=== PATIENT | female | born 1945 | race African-American/Black ===

== ENCOUNTER 2018-07-11 10:18 | Emergency (ER) | payer OTHER ==
[~2018-07-11] VITALS: Ht 165.1 cm; Wt 95.0 kg
[2018-07-11] MEDS ORDERED: KETOROLAC 30MG/ML VIAL IV STA (10:59)
[2018-07-11] MEDS ORDERED: SODIUM CHLORIDE 0.9% 1,000 ML IV ONE (10:59)
[2018-07-11] MEDS ORDERED: CLINDAMYCIN 600 MG in DEXTROSE 5% WATER 50 ML IV ONE (11:00)
[2018-07-11 12:03] LABS: BASOPHILS % 0.7 % (0.0-2.0); CHLORIDE 96 mEq/L (98-107); HEMATOCRIT. 33.4 % (36.0-48.0); HEMOGLOBIN. 10.5 g/dL (12.0-16.0); LYMPHOCYTES % 11.2 % (20.0-50.0); MEAN CORPUSCULAR HEMOGLOBIN 23.5 pg (28.0-32.0); MEAN CORPUSCULAR VOLUME 74.7 fL (81.0-99.0); MONOCYTES % 6.8 % (2.0-8.0); NEUTROPHILS % 80.3 % (40.0-76.0); PLATELET 323 x1000/uL (130-400); RED BLOOD CELL COUNT 4.47 mill/uL (4.2-5.4); RED CELL DISTRIBUTION WIDTH 15.8 % (11.6-14.6)
[2018-07-11 12:06] LABS: PROTHROMBIN TIME 10.4 sec (9.1-11.1)
[2018-07-11 12:23] LABS: BETA HYDROXYBUTYRATE 1.1 mMol/L (0.0-0.3)
[2018-07-11] MEDS ORDERED: CLINDAMYCIN 600MG PREMIX 50 ML IV ONE (12:30)
[2018-07-11 16:27] VITALS: BP 180/105
== END 2018-07-11 16:40 | disposition short-term general hospital (02) ==
LOC: ER 10:25 → CANBEDREQ 18:03
DX: J36 Peritonsillar abscess (principal); N17.9 Acute kidney failure, unspecified; E86.0 Dehydration; E11.9 Type 2 diabetes mellitus without complications; D50.9 Iron deficiency anemia, unspecified; I10 Essential (primary) hypertension; Z87.891 Personal history of nicotine dependence; Z88.8 Allergy status to other drugs, medicaments and biological substances; Z88.2 Allergy status to sulfonamides
CPT/HCPCS: 36415; 70490; 71045; 80053; 82010; 83605; 85025; 85610; 87040; 87070; 87430; 93005; 96361; 96365; 96375; 99291; J1885; J3490; J7030; J7060

== ENCOUNTER 2019-03-19 19:04 | Emergency (ER) | payer OTHER, MEDICAID ==
[~2019-03-19] VITALS: Ht 167.6 cm; Wt 91.0 kg
[2019-03-19] MEDS ORDERED: DEXTROSE 50% WATER 50ML SYRINGE IV ONE ×2 (20:15→23:00)
[2019-03-19] MEDS ORDERED: SODIUM CHLORIDE 0.9% 500 ML IV ONE (20:15)
[2019-03-19 20:35] LABS: CHLORIDE 107 mEq/L (98-107)
[2019-03-19 20:38] LABS: BASOPHILS % 0.3 % (0.0-2.0); EOSINOPHILS % 0.9 % (0.0-5.0); HEMATOCRIT. 35.3 % (36.0-48.0); HEMOGLOBIN. 10.8 g/dL (12.0-16.0); LYMPHOCYTES % 14.7 % (20.0-50.0); MEAN CORPUSCULAR VOLUME 74.9 fL (81.0-99.0); MEAN PLATELET VOLUME 9.6 fl (7.4-10.4); NEUTROPHILS % 78.1 % (40.0-76.0); PLATELET 331 x1000/uL (130-400); RED BLOOD CELL COUNT 4.72 mill/uL (4.2-5.4); RED CELL DISTRIBUTION WIDTH 15.8 % (11.6-14.6)
[2019-03-19 21:16] LABS: CLARITY URINE CLEAR (CLEAR); COLOR URINE YELLOW (YELLOW); KETONES URINE NEGATIVE (NEGATIVE); LEUKOCYTE ESTERASE URINE NEGATIVE (NEGATIVE); NITRITE URINE NEGATIVE (NEGATIVE); OCCULT BLOOD URINE TRACE (NEGATIVE); PH URINE 6.5 (4.5-8.0); PROTEIN URINE 3+ (NEGATIVE); SPECIFIC GRAVITY URINE 1.008 (1.005-1.030); UROBILINOGEN URINE 0.2 E.U./dL (0.2-1.0)
[2019-03-19] MEDS ORDERED: CEFTRIAXONE 1 G PREMIX 50 ML IV ONE (21:45)
[2019-03-19] MEDS ORDERED: DEXT 5%/0.9% NACL 1,000 ML IV ONE (23:00)
[2019-03-20 01:04] VITALS: BP 180/86
== END 2019-03-20 01:22 | disposition short-term general hospital (02) ==
LOC: ER 19:12 → CANBEDREQ 03-20 02:05
DX: E11.649 Type 2 diabetes mellitus with hypoglycemia without coma (principal); N39.0 Urinary tract infection, site not specified; I10 Essential (primary) hypertension; Z90.710 Acquired absence of both cervix and uterus; Z88.2 Allergy status to sulfonamides; Z88.6 Allergy status to analgesic agent; Z88.8 Allergy status to other drugs, medicaments and biological substances
CPT/HCPCS: 36415; 71045; 80053; 81003; 82962; 83880; 84484; 85025; 87086; 93005; 96361; 96365; 96366; 96375; 99285; J0696; J7040